=== PATIENT | female | born 1950 ===

== ENCOUNTER 2022-07-22 14:13 | Inpatient (IN) | payer MEDICARE, BC ==
[~2022-07-22] VITALS: Ht 162.6 cm; Wt 62.6 kg
[2022-07-22 17:38] VITALS: BP 131/71
[2022-07-22] MEDS ORDERED: OXYCODONE/APAP 5-325 MG TABLET PO PRN (17:45)
[2022-07-22] MEDS ORDERED: ALPR0.5T8 PO (18:53)
[2022-07-22] MEDS ORDERED: PRAZ1CAP5 PO (18:54)
[2022-07-22] MEDS ORDERED: ERGO500040 PO (19:26)
[2022-07-22] MEDS ORDERED: FAMO-132 PO (19:26)
[2022-07-22] MEDS ORDERED: CEFD300C3 PO (19:26)
[2022-07-22] MEDS ORDERED: DOCU-141 PO (19:26)
[2022-07-22] MEDS ORDERED: BISA10SU61 RC (19:26)
[2022-07-22] MEDS ORDERED: CHOL10005 PO (19:26)
[2022-07-22] MEDS ORDERED: ACET-73 PO (19:26)
[2022-07-22] MEDS ORDERED: ASPI-869 PO (19:26)
[2022-07-22] MEDS ORDERED: POLY17PO4 PO (19:29)
[2022-07-22] MEDS ORDERED: CYCL10TA9 PO (19:29)
[2022-07-22] MEDS ORDERED: GABA-532 PO (19:29)
[2022-07-22] MEDS: OXYCODONE HCL 5 MG TABLET PO PRN (19:52)
[2022-07-22 20:00] VITALS: BP 119/66
--- NOTE | 2022-07-22 20:03 | NUR ---
RN RECEIVES REPORT FROM TIARRA BELTRE, AT [facility]. PATIENT ARRIVES TO UNIT AT 1645PM IN STABLE CONDITION. RN RECEIVES REPORT FROM EMT. VITAL SIGNS STABLE. PATIENT SEEN BY MD (NURIS NORMAN). ORDERS INPUTTED PER REHAB PROTOCOL. BELONGINGS LIST SIGNED AND ITEMS ACCOUNTED FOR. INITIAL ADMISSIONS ASSESSMENTS COMPLETED. PATIENT ABLE TO HAVE DINNER. PATIENT TOLERATES PO MEDICATIONS AND DIET WELL. PATIENT HAD COMPLIANT OF PAIN, RN GAVE PAIN MEDICATION ORDERED BY MD. MD (DR. MILTON) MADE AWARE OF ADMISSION. NO ACUTE DISTRESS. CALL LIGHT WITHIN REACH. FALL PRECAUTIONS OBSERVED. RN ENDORSED CARE TO TIARRA COLLINS, FOR CONTINUATION OF CARE.
[2022-07-22] MEDS ORDERED: OXYC10TA49 PO (20:14)
[2022-07-22] MEDS ORDERED: OXYC5CAP18 PO (20:14)
[2022-07-22] MEDS ORDERED: REMEDY ESSENTIAL ZINC PASTE 113 GM TOP PRN (20:15)
[2022-07-23] MEDS: ACETAMINOPHEN 325 MG TABLET PO PRN ×4 (00:49→22:09)
[2022-07-23 04:00] VITALS: BP 123/70
[2022-07-23] MEDS: OXYCODONE HCL 5 MG TABLET PO PRN ×4 (04:44→20:32)
--- NOTE | 2022-07-23 05:15 | NUR ---
Resting in bed. AAOx4 All needs attended. VSS. Admitted for right hip fracture. S/P IM nailing on the right hip(07/16). Right hip with matthias intact with dressing. Fall precautions maintained. Siderails up for safety. Needs attended. Pain meds given as needed. With relief noted. Continent of bowel and bladder. No acute distress noted. All due meds given.
[2022-07-23 07:52] VITALS: BP 135/73
[2022-07-23] MEDS: GABAPENTIN 300 MG CAPSULE PO SCH ×3 (08:51→17:04)
--- NOTE | 2022-07-23 09:52 | NUR ---
0700-REC'D PATIENT IN BED, ASLEEP, NO RESPIRATORY DISTRESS NOTED; ABLE TO WAKE UP ON VERBAL COMMANDS. PATIENT IS A/OX4, VERBALIZES NEEDS AND FOLLOWS DIRECTIONS. NO C/O PAIN AT THIS TIME. OFFERED ORAL FLUIDS, PATIENT DECLINED SHE WANTS TO CONTINUE RESTING. SAFETY MEASURES IN PLACE AND CALL LIGHT WITHIN REACH. 0900-SCHEDULED/DUE MEDICATION ADMINISTERED WITH NO ASE NOTED. ORAL FLUIDS TAKEN WELL, PATIENT CONTINUES EATING HER BREAKFAST AT THIS TIME, DENIES GI DISCOMFORT, NO SWALLOWING PROBLEMS NOTED; ASSIST PROVIDED NEEDED.
[2022-07-23 16:13] VITALS: BP 136/74
[2022-07-23] MEDS ORDERED: ONDANSETRON HCL 4 MG TABLET PO PRN (17:45)
[2022-07-23 19:45] VITALS: BP 101/49
[2022-07-23 22:07] LABS: *BILIRUBIN,URIN NEGATIVE (NEGATIVE); *BLOOD, URINE NEGATIVE (NEGATIVE); *CLARITY,URINE CLEAR (CLEAR); *COLOR,URINE YELLOW (YELLOW); *KETONES,URINE NEGATIVE (NEGATIVE); LEUKOCYTE ESTERASE ,URINE TRACE (NEGATIVE); NITRITE, URINE NEGATIVE (NEGATIVE); PH,URINE 7.5 (5.0-8.0); UGLUCOSE NEGATIVE (NEGATIVE)
[2022-07-23] MEDS: ALPRAZOLAM 0.5 MG TABLET PO PRN (22:09)
[2022-07-24 01:12] LABS: BACTERIA,URINE FEW /HPF (NONE SEEN); RBC,URINE NONE SEEN /HPF (0-3); SQUAMOUS EPITHELIAL CELL,UR FEW /HPF (NONE SEEN); URINE AMORPHOUS URATE MODERATE /HPF; WBC,URINE 0-3 /HPF (0-3)
[2022-07-24 04:50] VITALS: BP 104/56
[2022-07-24] MEDS: GABAPENTIN 300 MG CAPSULE PO SCH ×3 (09:00→16:25)
[2022-07-24] MEDS: OXYCODONE HCL 5 MG TABLET PO PRN ×4 (09:09→22:08)
[2022-07-24 09:14] VITALS: BP 109/62
--- NOTE | 2022-07-24 09:19 | NUR ---
Notified Dr. Singh, [employer] , of pt's UA results. He will follow up in person later today.
[2022-07-24] MEDS: ALPRAZOLAM 0.5 MG TABLET PO PRN ×2 (10:12→22:08)
--- NOTE | 2022-07-24 15:39 | NUR ---
Dr. Singh at pt's bedside to assess UTI symptoms. Pt states no UTI symptoms at this time. told pt to notify staff if/when any UTI symptoms appear. Will hold off on Abx until then.
[2022-07-24 15:44] VITALS: BP 113/64
[2022-07-24] MEDS: ENSURE ENLIVE (VAN) 240 ML LIQUID PO SCH (16:26)
[2022-07-24 19:40] VITALS: BP 118/53
[2022-07-25 04:45] VITALS: BP 121/70
[2022-07-25] MEDS: OXYCODONE HCL 5 MG TABLET PO PRN ×3 (06:22→14:45)
--- NOTE | 2022-07-25 07:24 | NUR ---
REPORT GIVEN TO TIARRA TOLEDO
[2022-07-25] MEDS: ENSURE ENLIVE (VAN) 240 ML LIQUID PO SCH ×2 (07:31→16:43)
[2022-07-25 07:51] VITALS: BP 107/53
[2022-07-25] MEDS: GABAPENTIN 300 MG CAPSULE PO SCH ×3 (08:31→16:42)
--- NOTE | 2022-07-25 12:07 | NUR ---
INDIVIDUALIZED PLAN OF CARE
--- NOTE | 2022-07-25 13:46 | NUR ---
WOUND CARE CONSULT: PT SEEN FOR RESOLVING AREA OF EXCORIATION TO RT BUTTOCK. RT THIGH SURGICAL SITES CLEAR WITH DONALD. SLIGHT EDEMA AND DISCOLORATION NOTED TO RT THIGH. NO TENDERNESS OR DRAINAGE NOTED. DISCUSSED SKIN PROTECTION WITH NURSING STAFF. MD IN AGREEMENT WITH PLAN OF CARE.
[2022-07-25 15:07] VITALS: BP 111/64
[2022-07-25 20:32] VITALS: BP 117/59
[2022-07-25] MEDS: MORPHINE SULFATE SR 15 MG TABLET.SA PO SCH (20:54)
[2022-07-25] MEDS: ALPRAZOLAM 0.5 MG TABLET PO PRN (22:11)
[2022-07-26 04:05] VITALS: BP 115/60
[2022-07-26 07:47] VITALS: BP 125/64
[2022-07-26] MEDS: ENSURE ENLIVE (VAN) 240 ML LIQUID PO SCH ×2 (08:23→17:21)
[2022-07-26] MEDS: GABAPENTIN 300 MG CAPSULE PO SCH ×3 (08:24→16:06)
[2022-07-26] MEDS: MORPHINE SULFATE SR 15 MG TABLET.SA PO SCH ×2 (08:24→20:46)
[2022-07-26] MEDS: SENNOSIDES/DOCUSATE SODIUM TABLET PO SCH (08:24)
[2022-07-26] MEDS: OXYCODONE HCL 5 MG TABLET PO PRN (12:20)
[2022-07-26 15:24] VITALS: BP 114/66
--- NOTE | 2022-07-26 15:32 | NUR ---
0700-Rec'd in bed, awake/A/Ox4, verbalizes needs and follows directions. Patient denies pain, on R/A and well koffi. Patient requested for help to use bed wolf and assisted. Call light at reach, encouraged to use it every time help is needed with good understanding. 0900-Scheduled medication administered as ordered, no ASE noted. Patient continues eating breakfast, denies GI discomfort, oral fluids taken well. Call light at reach.
--- NOTE | 2022-07-26 15:39 | NUR ---
12:00-Patient OOB to rehab, using FWW and ambulating ad sea in hallway with rehab personnel supervision.
[2022-07-26] MEDS ORDERED: MIRALAX 17 GM POWD.PACK PO PRN (18:45)
--- NOTE | 2022-07-26 19:19 | NUR ---
Patient eating and drinking well, denies GI discomfort, VSS. Assist with ADLs and at all times. Needs anticipated and met in a promptly manner. Care provided at routine intervals and as needed.
[2022-07-27] MEDS: ACETAMINOPHEN 325 MG TABLET PO PRN (06:09)
--- NOTE | 2022-07-27 06:14 | NUR ---
Quiet night. AAOx4 All needs attended and met. Pain meds given as scheduled. Continent of bowel and bladder.No BM noted this shift. Will monitor patient. Kept comfortable.VSS.
[2022-07-27] MEDS: ALPRAZOLAM 0.5 MG TABLET PO PRN (06:27)
--- NOTE | 2022-07-27 07:49 | NUR ---
0700-Patient in bed, in a sitting position; awake, and brushing her teeth. Offered assist, per patient she is "ok" denies pain, no respiratory distress noted. Encouraged to use call light for help every time needed.
[2022-07-27 08:00] VITALS: BP 107/57
[2022-07-27] MEDS: GABAPENTIN 300 MG CAPSULE PO SCH ×3 (08:23→16:27)
[2022-07-27] MEDS: MORPHINE SULFATE SR 15 MG TABLET.SA PO SCH (08:24)
[2022-07-27] MEDS: SENNOSIDES/DOCUSATE SODIUM TABLET PO SCH (08:24)
[2022-07-27] MEDS: ENSURE ENLIVE (VAN) 240 ML LIQUID PO SCH ×2 (08:26→17:07)
[2022-07-27] MEDS: OXYCODONE HCL 5 MG TABLET PO PRN (12:14)
[2022-07-27] MEDS ORDERED: NALOXONE HCL 0.4 MG/ML AMPUL IV PRN (13:00)
--- NOTE | 2022-07-27 13:02 | NUR ---
INTERDISCIPLINARY TEAM CONFERENCE
--- NOTE | 2022-07-27 13:05 | NUR ---
INTERDISCIPLINARY TEAM CONFERENCE
[2022-07-27] MEDS ORDERED: OXYCODONE HCL 20 MG TAB.SR.12H PO SCH (14:00)
--- NOTE | 2022-07-27 17:50 | NUR ---
PATIENT IS ALERT AND ORIENTED, DENIES PAIN OR DISCOMFORT, REC'D PHYSICAL THERAPY/OT TODAY; PATIENT ABLE TO ACTIVELY PARTICIPATE IN THERAPY, MEDICATED FOR PAIN ACCORDINGLY/ ORDERED BY MD. AND EFFECTIVE. PATIENT IS PENDING DC TODAY TO: [address] [facility] [id number] , CALLED AND FULL REPORT GIVEN TO [facility] NURSE. PATIENT SIGNED ALL DC PAPERWORK/INVENTORY LIST. ONLY PENDING TO BE PICKED UP BY AMBULANCE.
--- NOTE | 2022-07-27 20:32 | NUR ---
patient picked up by ambulance @ 2029 , VSS patient stable.
== END 2022-07-27 20:35 | DRG 561 ==
PROVIDERS: ADMIT Physical Medicine & Rehabilitation Pain Medicine; ATTEND Physical Medicine & Rehabilitation Pain Medicine
DX: S72.141D Displaced intertrochanteric fracture of right femur, subsequent encounter for closed fracture with routine healing (principal); I10 Essential (primary) hypertension; W01.0XXD Fall on same level from slipping, tripping and stumbling without subsequent striking against object, subsequent encounter; M81.0 Age-related osteoporosis without current pathological fracture; Z88.2 Allergy status to sulfonamides; Z90.710 Acquired absence of both cervix and uterus; R33.9 Retention of urine, unspecified; K59.00 Constipation, unspecified; F41.9 Anxiety disorder, unspecified; Z88.0 Allergy status to penicillin
CPT/HCPCS: 97535-GO-CO; A4663; Q0162